=== PATIENT | female | born 1985 | race Caucasian/White ===

== ENCOUNTER 2019-11-15 21:05 | Emergency (ER) | payer OTHER ==
[2019-11-15] MEDS ORDERED: diphenhydrAMINE HCL 25 MG CAPSULE (FP) PO ONE ×2 (21:12→23:33)
[2019-11-15] MEDS ORDERED: predniSONE 20 MG TABLET (UD) PO ONE (21:12)
--- NOTE | 2019-11-15 21:12 | PDOC ---
Rapid Medical Evaluation Time Seen by Provider: 11/15/19 21:08 Medical Evaluation: Allergies Allergy/AdvReac Type Severity Reaction Status Date / Time No Known Allergies Allergy Verified 02/19/16 19:38 11/15/19 21:09 CC: rash to the abdomen Pt is a 34 y/o female with a rash to her abdomen today. She states she started to notice the rash on her face now as well. She had a CT scan with IV contrast yesterday and that is the only new contact. Took Benadryl at 1330 and 1930. Took only 25mg each time. Brief exam: Urticarial rash to the diffuse abdomen. No stridor, no pharygeal edema appreciated Orders: Benadryl 25mg, Prednisone To ED for further evaluation Discharge Disposition - Diagnosis Urticaria - Referrals - Patient Instructions - Post Discharge Activity
[2019-11-15 21:13] VITALS: BP 140/83; PULSE 76; TEMP 98.2; BMI 21.6
[2019-11-15] MEDS ORDERED: predniSONE 20 MG TABLET (UD) ONE (23:33)
--- NOTE | 2019-11-15 23:38 | PDOC ---
History of Present Illness - General Chief Complaint: Allergic Reaction Stated Complaint: ALERGIC REACTION Time Seen by Provider: 11/15/19 21:08 History Source: Patient Exam Limitations: No Limitations - History of Present Illness Initial Comments: 11/15/19 23:32 HISTORY OF PRESENT ILLNESS: 34-year-old woman presents emergency department for evaluation of rash to her trunk and face which started today. Patient denies any itching or pain with the rash. Patient is concerned that she had CAT scan with IV contrast performed on 11/14 and believes that this is allergic reaction to contrast medium. She denies any difficulty swallowing, vocal changes, hoarseness, shortness of breath, audible wheezing or difficulty swallowing. She denies any changes in soaps, shampoos, diet, foods, cosmetics, cleaning supplies. No recent travel or sick contacts. PAST MEDICAL HISTORY: Denies past medical history SURGICAL HISTORY: Denies ALLERGIES: No known drug allergies REVIEW OF SYSTEMS General/Constitutional: Denies fever or chills. Denies weakness, weight change. HEENT: Denies change in vision. Denies ear pain or discharge. Denies sore throat. Cardiovascular: Denies chest pain or shortness of breath. Respiratory: Denies cough, wheezing, or hemoptysis. Gastrointestinal: Denies nausea, vomiting, diarrhea or constipation. Denies rectal bleeding. Genitourinary: Denies dysuria, frequency, or change in urination. Musculoskeletal: Denies joint or muscle swelling or pain. Denies neck or back pain. Skin and breasts: See HPI Neurologic: Denies headache, vertigo, loss of consciousness, or loss of sensation. Psychiatric: Denies depression or anxiety. Endocrine: Denies increased thirst. Denies abnormal weight change. Hematologic/Lymphatic: Denies anemia, easy bleeding, or history of blood clots. Allergic/Immunologic: Denies hives or skin allergy. Denies latex allergy. PHYSICAL EXAM General Appearance: Well-appearing, appropriately dressed. No apparent distress , no intoxication. HEENT: EOMI, PERRLA, normal ENT inspection, normal voice, TMs normal, pharynx normal. No conjunctival pallor. No photophobia, scleral icterus. Uvula is midline. No pharyngeal edema present. Neck: Supple. Trachea midline. No tenderness, rigidity, carotid bruit, stridor , lymphadenopathy, or thyromegaly. Respiratory/Chest: Lungs CTAB. No shortness of breath, chest tenderness, respiratory distress, accessory muscle use. No crackles, rales, rhonchi, stridor , wheezing, dullness Cardiovascular: RRR. S1, S2. No JVD, murmur, bradycardia, tachycardia. Integumentary: Fine pink blanchable raised rash present to entire body worse on trunk. Neurologic: broadcast correspondent II-XII intact. Fully oriented, alert. Appropriate mood/affect. Motor strength 5/5. No appreciable EOM palsy, facial droop or sensory deficit. Past History - Past Medical History Allergies/Adverse Reactions: Allergies Allergy/AdvReac Type Severity Reaction Status Date / Time No Known Allergies Allergy Verified 11/15/19 21:09 Home Medications: Ambulatory Orders Diazepam [Valium] 5 mg PO BID #6 tablet 09/13/13 Naproxen [EC-Naprosyn] 500 mg PO BID #30 tablet.ec 09/13/13 Phenazopyridine HCl [Pyridium] 100 mg PO TID #6 tablet 05/31/15 Sulfamethoxazole/Trimethoprim [Bactrim Ds -] 1 tab PO BID #14 tablet 05/31/15 Ibuprofen [Motrin] 600 mg PO TID #30 tablet 02/19/16 Penicillin V Potassium [Pen Vee K -] 500 mg PO TID #30 tablet 02/19/16 Meloxicam [Mobic] 15 mg PO DAILY 30 Days #30 tablet MDD 15mg 09/15/17 - Immunization History Immunization Up to Date: Yes - Psycho Social/Smoking Cessation Hx Smoking History: Never smoked Have you smoked in the past 12 months: No Information on smoking cessation initiated: No Hx Alcohol Use: No Drug/Substance Use Hx: No *Physical Exam - Vital Signs Last Vital Signs Temp Pulse Resp BP Pulse Ox 98.2 F 76 16 140/83 100 11/15/19 21:09 11/15/19 21:09 11/15/19 21:09 11/15/19 21:11/15/19 21:09 Medical Decision Making - Medical Decision Making 11/15/19 23:34 A/P: 34-year-old woman with fine pink nonpruritic blanchable rash to entire body worse on the trunk Oropharynx is unremarkable with uvula midline. No erythema or exudates are present. No edema noted. No stridor auscultated Lungs clear to auscultation bilaterally As patient symptoms developed greater than 12 hours after receiving IV contrast is questionable whether this is the inciting incident for this rash. As patient is having no respiratory compromise I feel it is safe to discharge home with follow-up with dermatology and or social media content manager. Medicate per RME Discharge home with dermatology/allergy follow-up Discharge - Discharge Information Problems reviewed: Yes Clinical Impression/Diagnosis: Urticaria Condition: Stable Disposition: HOME - Admission No - Follow up/Referral Referrals: Alissa Padilla [Primary Care Provider] - Sanjuanita Hayes MD [Staff Physician] - Keny Butts MD [Staff Physician] - - Patient Discharge Instructions Additional Instructions: You have been given a referral for Dr. Butts who is an social media content manager as well as Dr. Hayes who is a jute bag cutting machine operator. Contact for evaluation. Do not change soaps, shampoos, conditioners, laundry detergents, fabric softeners, foods or medications until you follow-up with allergy or dermatology. Take Benadryl as needed for itching. Return to the emergency department for difficulty swallowing, difficulty breathing, audibly wheezing, drooling or for any other concerns. Thank you very much for choosing us to provide your emergent healthcare needs. - Post Discharge Activity
== END 2019-11-15 23:40 | disposition home or self-care (01) ==
LOC: JERFT 21:05
DX: L50.9 Urticaria, unspecified (principal)
CPT/HCPCS: 99281-25

== ENCOUNTER 2020-12-19 21:31 | Emergency (ER) | payer OTHER ==
[2020-12-19 21:37] VITALS: BP 133/84; PULSE 68; TEMP 97.8; BMI 22.3
[2020-12-19] MEDS ORDERED: AMOXICILLIN 500 MG CAPSULE (FP) PO ONE (22:31)
[2020-12-19] MEDS ORDERED: AMOXICILLIN 500 MG CAPSULE (FP) ONE (23:01)
== END 2020-12-19 23:06 | disposition home or self-care (01) ==
LOC: JER 21:31
DX: K08.89 Other specified disorders of teeth and supporting structures (principal)
CPT/HCPCS: 99283-25

== ENCOUNTER 2022-05-15 21:11 | Emergency (ER) | payer OTHER ==
[2022-05-15 21:17] VITALS: BP 124/79; PULSE 72; RESP 19; TEMP 98.6; BMI 22.3
== END 2022-05-15 23:00 | disposition home or self-care (01) ==
LOC: JERFT 21:11
DX: R59.0 Localized enlarged lymph nodes (principal)
CPT/HCPCS: 99282-25